=== PATIENT | male | born 1945 | race Caucasian/White ===

== ENCOUNTER 2016-12-21 12:42 | Emergency (ER) | payer OTHER ==
[~2016-12-21] VITALS: Ht 167.6 cm; Wt 76.0 kg
[2016-12-21 12:50] VITALS: BP 160/78; PULSE 64; RESP 16; TEMP 97.5; O2SAT 99
[2016-12-21] MEDS ORDERED: KETOROLAC TROMETHAMINE 60 MG/2 ML (IM) VIAL IM ONE (13:15)
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
[2016-12-21] MEDS ORDERED: IBUP800T23 PO (13:57)
== END 2016-12-21 14:20 | disposition home or self-care (01) ==
LOC: PHED 12:42
DX: S46.911A Strain of unspecified muscle, fascia and tendon at shoulder and upper arm level, right arm, initial encounter (principal); Y93.55 Activity, bike riding; V19.88XA Pedal cyclist (driver) (passenger) injured in other specified transport accidents, initial encounter
CPT/HCPCS: 71010; 73030; 96372; 99284; J1885

== ENCOUNTER 2017-05-28 12:40 | Emergency (ER) | payer OTHER ==
[~2017-05-28] VITALS: Ht 167.6 cm; Wt 80.0 kg
[~2017-05-28 12:40] MED LIST: IBUP1TAB7 PO
[2017-05-28 13:09] VITALS: BP 178/88; PULSE 71; RESP 16; TEMP 98.3; O2SAT 99
[2017-05-28] MEDS ORDERED: SODIUM CHLOR 0.9% 1000 ML INJ 1,000 ML IV SCH (13:19)
[2017-05-28] MEDS ORDERED: DIPHTH/TETANUS/ACEL PERTUSSIS (BOOSTER) 0.5 ML VIAL/PFS IM ONE (13:30)
[2017-05-28] MEDS ORDERED: ONDANSETRON HCL 4 MG/2 ML VIAL IV PUSH ONE (13:30)
[2017-05-28] MEDS ORDERED: SODIUM CHLORIDE 0.9% FLUSH 10 ML FLUSH IVF PRN (13:30)
[2017-05-28] MEDS ORDERED: LIDOCAINE 1%/EPINEPHrine 1:100,000 SOLN 20 ML VIAL INFIL ONE ×2 (13:30→14:30)
[2017-05-28] MEDS ORDERED: MORPHINE SULFATE 4 MG/ML INJ IV PUSH ONE (13:30)
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
[2017-05-28 13:51] LABS: AUTOMATED NEUTROPHIL # 10.3 TH/MM3 (1.8-7.7); BASOPHIL # 0.1 TH/MM3 (0-0.2); BASOPHIL % 0.8 % (0.0-2.0); EOSINOPHIL # 0.4 TH/MM3 (0-0.4); EOSINOPHIL % 2.6 % (0.0-4.0); HEMATOCRIT 44.1 % (39.0-51.0); HEMOGLOBIN 14.5 GM/DL (13.0-17.0); LYMPH % 15.2 % (9.0-44.0); LYMPHOCYTE # 2.1 TH/MM3 (1.0-4.8); MEAN CELL VOLUME 83.1 FL (80.0-100.0); MEAN CORPUSCULAR HEMOGLOBIN 27.3 PG (27.0-34.0); MEAN CORPUSCULAR HGB CONC 32.8 % (32.0-36.0); MEAN PLATELET VOLUME 10.4 FL (7.0-11.0); MONO % 6.4 % (0.0-8.0); MONOCYTE # 0.9 TH/MM3 (0-0.9); PLATELET COUNT 205 TH/MM3 (150-450); RED BLOOD COUNT 5.31 MIL/MM3 (4.50-5.90); RED CELL DISTRIBUTION WIDTH 13.2 % (11.6-17.2); WHITE BLOOD COUNT 13.7 TH/MM3 (4.0-11.0)
[2017-05-28 13:59] VITALS: RESP 16; O2SAT 97
[2017-05-28 14:07] LABS: INTERNATIONAL NORMALIZED RATIO 1.1 RATIO; PROTHROMBIN TIME - PATIENT 10.8 SEC (9.8-11.6)
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
[2017-05-28 14:16] LABS: BICARBONATE 25.8 MEQ/L (21.0-32.0); CALCIUM 8.7 MG/DL (8.5-10.1); CREATININE 1.06 MG/DL (0.60-1.30)
[2017-05-28] MEDS ORDERED: LIDOCAINE 1%/EPINEPHrine 1:100,000 SOLN 30 ML VIAL ONE (14:24)
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
[2017-05-28] MEDS ORDERED: IOHEXOL 350 MG/ML 10 ML VIAL (for RAD DIAG) IVCONTRAST ONE (15:25)
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
[2017-05-28] MEDS ORDERED: IBUP-232 PO (17:55)
[2017-05-28] MEDS ORDERED: CEPH-460 PO (17:55)
[2017-05-28] MEDS ORDERED: ROBA750T PO (17:55)
[2017-05-28 19:03] VITALS: BP 159/78; PULSE 67; RESP 16; O2SAT 97
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
--- NOTE | 2017-05-29 14:48 | EKG ---
Date Performed: 05/28/2017 Time Performed: 13:11:38 PTAGE: 71 years EKG: Sinus rhythm POSSIBLE LEFT VENTRICULAR HYPERTROPHY POSSIBLE LATERAL MYOCARDIAL INFARCTION (OLD) ABNORMAL ECG NO PREVIOUS TRACING DOCTOR: Duane Gutiérrez Interpretating Date/Time 05/29/2017 14:47:05
== END 2017-05-28 19:39 | disposition home or self-care (01) ==
LOC: NEPC 12:40
DX: S51.012A Laceration without foreign body of left elbow, initial encounter (principal); S01.01XA Laceration without foreign body of scalp, initial encounter; S16.1XXA Strain of muscle, fascia and tendon at neck level, initial encounter; S20.212A Contusion of left front wall of thorax, initial encounter; R94.31 Abnormal electrocardiogram [ECG] [EKG]; V13.4XXA Pedal cycle driver injured in collision with car, pick-up truck or van in traffic accident, initial encounter; Y93.55 Activity, bike riding; Z23 Encounter for immunization
CPT/HCPCS: 12002; 70450; 70486; 71045; 71260; 72125; 72129; 73080; 80048; 85025; 85610; 85730; 90471; 90715; 93005; 96361; 96374; 96375; 99285; J2270; J2405; J7030; Q9967